=== PATIENT | male | born 1990 | race Caucasian/White ===

== ENCOUNTER 2019-04-24 08:52 | Emergency (ER) | payer OTHER, SELFPAY ==
[2019-04-24 08:52] VITALS: O2SAT 100
[2019-04-24 09:02] VITALS: BP 124/84; PULSE 120; RESP 20; TEMP 36; O2SAT 100
--- NOTE | 2019-04-24 09:06 | ECG_ITS ---
Measurements Intervals [place] Rate: 117 P: VA: 0 QRS: 28 QRSD: 96 T: 5 QT: 323 QTc: 451 Interpretive Statements ATRIAL FIBRILLATION WITH RAPID VENTRICULAR RESPONSE BORDERLINE T WAVE ABNORMALITY- INFERIOR LEADS ABNORMAL ECG Electronically Signed On 04-24-2019 17:27:00 ACCOUNTS RECEIVABLE ANALYST by Rick Costa D.O.
--- NOTE | 2019-04-24 09:08 | ED.CHESTPAIN ---
HPI - Chest Pain General Chief Complaint: Chest Pain Stated Complaint: Chest Pain Time Seen by Provider: 04/24/19 08:55 History of Present Illness HPI narrative: Victor Hugo Rolle is a 28 year old male c/o chest pain, sob - pale on arrival. Started 2 hours ago Related Data Home Medications Medication Instructions Recorded Confirmed No Home Medications 04/24/19 04/24/19 Allergies Allergy/AdvReac Type Severity Reaction Status Date / Time NKDA Allergy Mild Unknown Uncoded 04/24/19 09:03 Review of Systems Review of Systems: Narrative: CONSTITUTIONAL: Denies fever, chills, sweats. EYES: Denies visual changes, redness, discharge. ENT: Denies rhinorrhea, congestion, sore throat, otalgia. CARDIOVASCULAR:haschest pain, palpitations, some sob, no edema. RESPIRATORY: Denies dyspnea, wheezing, cough GASTROINTESTINAL: Denies abdominal pain, nausea, vomiting, diarrhea. GENITOURINARY: Denies dysuria, hematuria, abnormal discharge SKIN: Denies rash or itching. NEUROLOGIC: Denies numbness, or focal weakness. PSYCHIATRIC: Denies anxiety or depression. [facility] Family History Family History Other Diabetes mellitus Social History Social History Smoking status: Never smoker Occupation/Education: occupation Gender identity (if verbalized by the patient): Male Comments At time of signature, I agree with nursing past medical, surgical, social and family history. There is no relevant family history pertinent to the presenting complaint. Exam Narrative: Exam Narrative: GENERAL: This is a well-nourished, well-developed patient, in moderate distress. HEAD: normocephalic, atraumatic. EYESSclera clear/white. Vision is grossly intact. EARS: External ears normal, Hearing grossly intact. NOSE: External nose normal with no obvious nasal discharge, nares without redness, no rhinorrhea. THROAT: Mucous membranes moist, . NECK: Neck supple, non-tender without lymphadenopathy CARDIOVASCULAR: Rapid rate, irregular, normal rhythm without murmurs, gallops, or rubs. RESPIRATORY: Clear to auscultation. Breath sounds equal bilaterally. Some shortness of breath; no wheezes, rales, or rhonchi. GASTROINTESTINAL: Abdomen soft, non-tender, nondistended. Bowel sounds are active. SKIN: warm, intact with no suspicious lesions or rash, good texture and turgor. NEURO: awake, alert, and oriented to person, place and time. There were no obvious focal neurologic abnormalities. Steady gait EXTREMITIES: Normal range of motion. No edema. . BACK: Nontender without deformity or crepitance. Course Course Emergency Course: EKG shows abnormal irregular rhythm-interpreted as A. fib with RVR-rate fluctuating between 50s to 140s, Discussed results with mother and patient and patient will go to [facility] for further evaluation needs cardiac eval Vital Signs Vital signs: Vital Signs Temperature 96.8 F L 04/24/19 09:02 Pulse Rate 120 H 04/24/19 09:02 Respiratory Rate 04/24/19 09:02 Blood Pressure 124/84 04/24/19 09:02 Pulse Oximetry 100 04/24/19 09:02 Temperature 96.8 F L 04/24/19 09:02 Pulse Rate 120 H 04/24/19 09:02 Respiratory Rate 04/24/19 09:02 Blood Pressure 124/84 04/24/19 09:02 Pulse Oximetry 100 04/24/19 09:02 MDM - Chest Pain Differential Diagnosis Differential diagnosis: Likely stable angina, atypical chest pain and chest pain Discharge Plan Discharge Clinical Impression: Chest pain Qualifiers: Chest pain type: other chest pain Qualified Code(s): R07.89 - Other chest pain Patient Disposition: Acute Care Hospital Condition: Stable Instructions: Chest Pain (ED) Prescriptions: No Action No Home Medications RF: 0 Follow-up/Referrals: Melanie,LMA Calle [Primary Care Provider] - Time of Disposition: 09:16
== END 2019-04-24 09:15 | disposition short-term general hospital (02) ==
PROVIDERS: Emergency Provider Nurse Practitioner; PCP Nurse Practitioner Adult Health
DX: R07.89 Other chest pain (principal); I48.91 Unspecified atrial fibrillation
CPT/HCPCS: 93005; 99213; G0463

== ENCOUNTER 2019-04-24 09:33 | Observation (INO) | payer OTHER, SELFPAY ==
[2019-04-24] VITALS (12 sets, daily range): BP systolic 108–127; BP diastolic 61–81; PULSE 73–130; RESP 16–22; TEMP 36.3–37; O2SAT 94–98; BMI 29.1; BMI 28.8
--- NOTE | 2019-04-24 | ECHO_ITS ---
Patient Info Name: Victor Hugo Rolle Age: 28 years : 1990 Gender: Male Ht: 72 in Wt: 200 lbs BSA: 2.16 m2 HR: 109 bpm BP: 118 / 77 mmHg Technical Quality: Good Exam Date: 04/24/2019 1:59 PM Exam Location: [facility] Patient Status: Inpatient Admit Date: 04/24/2019 Staff Ordering Physician: Antonia Kelley MD Family Life Educator: Arielle Telles RUST Attending Provider: Lino Villalta MD Referring Physician: Warren WALKER; Exam Type: CA echo doppler color flow Summary 1. Normal LV size, mild LVH, normal LV systolic function, ejection fraction 60-65%. Indeterminate diastolic function. Normal structure of the valves. No significant MR. No aortic stenosis. Trivial TR, RVSP about 20 mmHg. Atrial fibrillation. Left Ventricle Left ventricular chamber dimension is normal. Left ventricular systolic function is normal, estimated at 60-65%. There is mildly increased left ventricular wall thickness. Left ventricular septal wall motion is normal. The left ventricular diastolic function is indeterminate. Right Ventricle Right ventricular chamber dimension is normal. Right ventricular systolic function is normal. Left Atria Left atrial chamber dimension is normal. Right Atria Right atrial chamber dimension is normal. Aortic Valve The aortic valve is trileaflet. There is no aortic valve sclerosis. There is no aortic valve stenosis. There is no aortic valve regurgitation. Pulmonic Valve The pulmonic valve is normal. There is trace pulmonic regurgitation. Mitral Valve The mitral valve has normal leaflets. There is no mitral valve stenosis. There is no mitral valve regurgitation. Tricuspid Valve The tricuspid valve leaflets are normal. There is trace tricuspid valve regurgitation. Pericardium/Pleural The pericardium appears normal. There is no pericardial effusion. Aorta The aortic root size at the sinus of Valsalva is normal. The prox ascending aorta size is normal. Left Ventricular Outflow Tract Name Value Normal LVOT 2D LVOT Diameter 2.4 cm LVOT Doppler LVOT Peak Gradient 3 mmHg LVOT Mean Gradient 2 mmHg LVOT VTI 15 cm LVOT VTI/AV VTI Ratio 0.8 LVOT Stroke Volume 68 ml LVOT CO 7.4 l/min LVOT CI 3.4 l/min/m2 Pulmonic Valve Name Value Normal PV Doppler PV Peak Gradient 3 mmHg Mitral Valve Name Value Normal MV Doppler MV Decel Campbell
--- NOTE | ~2019-04-24 | US_ITS ---
US right upper quadrant INDICATION: Abnormal liver function tests PROCEDURE: Realtime right upper abdominal ultrasound. COMPARISON: CT dated 11/18/2017 FINDINGS: The pancreas is obscured by bowel gas. Liver echotexture is increased consistent with fatt y infiltration. There is normal directional flow in the portal vein. There is gallbladder sludge. No definite gallstones. Common bile duct measures 3 mm. No sonographic Recio's sign. IMPRESSION: 1: Gallbladder sludge. 2: Hepatic steatosis. Reviewed, dictated and finalized at location A. [employer] SALES
--- NOTE | ~2019-04-24 | XR_ITS ---
EXAMINATION: XR chest 1V portable INDICATION: Shortness of breath TECHNIQUE: Portable AP chest at 1057 hours 05/29/2005 COMPARISON: None available FINDINGS: The lungs are free of acute opacities. There is no pleural effusion or pneumothorax. The ca rdiomediastinal silhouette is normal. The visualized bones and soft tissues are unremarkable. IMPRESSION: 1. No acute cardiopulmonary abnormality. Reviewed, dictated and finalized at location A. R PLANT OPERATORS SUPERVISOR
--- NOTE | 2019-04-24 09:43 | ED.ARRPALP ---
HPI - Arrhythmia/Palpitations General Chief Complaint: Arrhythmia/Palpitations Stated Complaint: SOB/CP SENT FROM URGENT CARE Time Seen by Provider: 04/24/19 09:42 Source: patient and RN notes reviewed Mode of arrival: other Limitations: no limitations History of Present Illness HPI narrative: Pt is a 28 y/o male who presents to the ED, from , with c/o an irregular heart beat that began this morning after waking up. Pt drank EtOH last night. He states that he drinks heavily about once a month. He notes that he had a similar episode 6 months ago and he wore a Holter monitor. Pt's results were negative. Pt also reports palpitations and intermittent SOB, but denies chest pain, nausea, vomiting, weakness, and calf pain. MD complaint: irregular heart beat Onset (ago): hour(s) Duration: constant Context: awoke with symptoms Associated symptoms: shortness of breath (intermittent) and other (palpitations) Related Data Home Medications Medication Instructions Recorded Confirmed No Home Medications 04/24/19 04/24/19 Allergies Allergy/AdvReac Type Severity Reaction Status Date / Time NKDA Allergy Mild Unknown Uncoded 04/24/19 12:48 Review of Systems Review of Systems: All systems reviewed & are unremarkable except as noted in HPI and below Cardiovascular: Cardiovascular: Denies chest pain, Reports irregular heart rhythm and Reports other (palpitations) Respiratory: Respiratory: Reports dyspnea (intermittent) Gastrointestinal: Gastrointestinal: Denies nausea and Denies vomiting Musculoskeletal: Musculoskeletal: Denies other (calf pain) Neurologic: Denies weakness PMFSH Past Medical History Medical History Hernia Influenza A Surgical History Surgical History H/O hernia repair S/P genital surgery penile surgery Family History Family History (Updated 04/24/19 @ 14:14 by Lino Villalta MD) Grandparent Diabetes mellitus Grandparent Carcinoma of colon Father No problems noted. Mother No problems noted. Social History Social History (Updated 04/24/19 @ 14:19 by Lino Villalta MD) Smoking status: Never smoker Alcohol intake: never Alcohol use details: Pt states that he drinks heavily once a month. 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 HEAD: Normocephalic, atraumatic NOSE: Nares clear, no rhinorrhea or epistaxis THROAT:Mucous membranes moist, Oropharynx normal without erythema, exudate, peritonsillar swelling or fluctuance NECK: Supple, without lymphadenopathy or mass RESPIRATORY: No respiratory distress, Airway patent, Respirations non-labored, Clear to auscultation without rales, rhonchi or wheeze HEART: irregular irRegular rhythm and tachycardic rate. No murmur heard. Normal peripheral pulses. ABDOMEN: Soft, nontender, nondistended, normal active bowel sounds. No masses. No rebound or guarding, No organomegaly. EXTREMITIES: No edema, normal strength with full range of motion. SKIN: Warm, dry, pale NEURO: Alert and oriented x3. CN 2-12 grossly intact. No focal deficits. PSYCH: Normal mood and affect. Course Course Emergency Course: I have discussed with patient that he has afib with RVR and he will need to be admitted. The likely cause is alcohol use. Consultations Consultation #1: Discussed case with Dr. Pedro (Cardiology). Will consult. Pt needs to be admitted to the hospitalist. Date: 04/24/19 Time: 11:24
--- NOTE | 2019-04-24 09:50 | ECG_ITS ---
Measurements Intervals [place] Rate: 114 P: AK: 0 QRS: 27 QRSD: 90 T: 6 QT: 307 QTc: 423 Interpretive Statements ATRIAL FIBRILLATION WITH RAPID VENTRICULAR RESPONSE VENTRICULAR PREMATURE COMPLEX BORDERLINE T WAVE ABNORMALITY- INFERIOR LEADS BASELINE ARTIFACT- I, II, III ABNORMAL ECG Electronically Signed On 04-24-2019 17:27:35 PULL OUT OPERATOR by Rick Costa D.O.
[2019-04-24 10:09] LABS: Basophils Percent Auto 0.7 % (0.2-1.2); Eosinophils Percent Auto 0.3 % (0-4.4); Hematocrit 44.9 % (42.0-52.0); Hemoglobin 15.9 g/dL (14.0-18.0); Immature Granulocyte Absolute 0.01 K/mm3 (0.00-0.031); Immature Granulocyte Percent A 0.2 % (0-0.5); Lymphocytes Absolute Auto 1.34 K/mm3 (0.9-3.2); Lymphocytes Percent Auto 22.2 % (18.3-44.2); Mean Corpuscular HGB Conc 35.4 g/dl (32-36); Mean Corpuscular Hemoglobin 31.5 pg (26-34); Mean Corpuscular Volume 89.1 fl (80-100); Mean Platelet Volume 9.3 fl (7.4-10.4); Monocytes Absolute Auto 0.2 K/mm3 (0.1-0.6); Monocytes Percent Auto 3.3 % (2.6-8.5); Neutrophils Absolute Auto 4.4 K/mm3 (1.3-6.7); Neutrophils Percent Auto 73.3 % (45.5-73.1); Platelet Count Result 264 k/mm3 (150-375); Red Blood Count 5.04 M/mm3 (4.6-6.20); Red Cell Distribution Width 11.8 % (11.5-14.5)
[2019-04-24 10:19] LABS: INR 1.1; Prothrombin Time 14.1 Seconds (11.1-14.7)
[2019-04-24 10:20] LABS: Partial Thromboplastin Time 28.7 SECONDS (22.3-36.8)
[2019-04-24 10:23] LABS: Alanine Aminotransferase 96 U/L (4-50); Albumin Level 5.1 g/dL (3.5-5.1); Alkaline Phosphatase 99 U/L (38-126); Aspartate Amino Transferase 66 U/L (17-59); Bilirubin,Total 0.8 mg/dL (0.2-1.3); Blood Urea Nitrogen 9 mg/dL (9-20); Calcium 9.6 mg/dL (8.4-10.2); Carbon Dioxide 23 mmol/L (22-30); Chloride 101 mmol/L (98-107); Estimated CRCL calculation 173 ml/min; Estimated Glomerular Filt Rate > 60; Glucose 126 mg/dL (75-110); Magnesium 1.8 mg/dL (1.6-2.3); Potassium 3.8 mmol/L (3.4-5.0); Sodium 144 mmol/L (137-145)
[2019-04-24 10:27] LABS: D Dimer 0.27 ug/mL (<0.48)
[2019-04-24 10:30] LABS: Amphetamine Screen Urine Negative (Negative); Barbiturate Screen Urine Negative (Negative); Benzodiazepines Screen Urine Negative (Negative); Cannabinoid Screen Urine Negative (Negative); Cocaine Screen Urine Negative (Negative); Methadone Screen Urine Negative (Negative); Opiate Screen Urine Negative (Negative); Phencyclidine Screen Urine Negative (Negative)
[2019-04-24 10:34] LABS: Troponin I < 0.012 ng/mL (0.000-0.034)
[2019-04-24] MEDS: ENOXAPARIN 100 MG/ML SYRINGE 90 MG SUB-Q (10:45)
[2019-04-24 11:07] LABS: Thyroid Stimulating Hormone Reflex 0.789 uIU/mL (0.465-4.68)
[2019-04-24] MEDS: ONDANSETRON INJ 4 MG/2 ML VIAL IV PUSH (11:14)
--- NOTE | 2019-04-24 14:08 | PM.IMHP ---
H&P: HPI History of Present Illness Chief complaint: new onset afib rvr Narrative: Victor Hugo Rolle is a 28 year old male was in his usual state of health until soon after awakening this morning. He developed palpitations in his chest. No chest pain. Associated lightheadedness dizziness shortness of breath. No syncope or presyncope. He presented the emergency department of [facility] in atrial fibrillation with a rapid ventricular response. He tolerated IV diltiazem with slowing of his heart rate. He still feels some palpitation but not as bad. He did binge drink about 6-8 drinks including beers and shots on April 23. He has been having palpitations intermittently for about 6 months. The palpitations do not correlate with his binge drinking which he does about once per month. Last episode of binge drinking prior to April 23 was about a month ago. Over the last 6 months he has noted dyspnea on exertion mainly with climbing steps. This occurs even when he is not having palpitations. He has no edema. No orthopnea or PND. Denied fevers chills night sweats rashes itching cough wheezing chest pain abdominal pain bowel change bladder change abnormal bleeding joint pain or current headache. He does have a history of migraines intermittently. Review of Systems Review of Systems: All systems reviewed & are unremarkable except as noted in HPI and below PMFSH Past Medical History Medical History Hernia Influenza A Surgical History Surgical History H/O hernia repair S/P genital surgery penile surgery Family History Family History (Updated 04/24/19 @ 14:14 by Lino Villalta MD) Grandparent Diabetes mellitus Grandparent Carcinoma of colon Father No problems noted. Mother No problems noted. Social History Social History (Updated 04/24/19 @ 14:19 by Lino Villalta MD) Smoking status: Never smoker Alcohol intake: never Alcohol use details: Pt states that he drinks heavily once a month. 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[employer] Gender identity (if verbalized by the patient): Male Spiritual care concerns: Yes (Tenriism) Agree to blood products: Yes Meds Home Medications and Allergies Home Medications Medication Instructions Recorded Confirmed Type No Home Medications 04/24/19 04/24/19 History Allergies Allergy/AdvReac Type Severity Reaction Status Date / Time NKDA Allergy Mild Unknown Uncoded 04/24/19 12:48 Vital Signs Vital Signs - 24 hr 04/24/19 09:59 04/24/19 12:40 04/24/19 13:02 Temperature 97.6 F 97.4 F L Pulse Rate 130 H 97 78 Respiratory Rate 16 21 H 18 Blood Pressure 108/81 118/77 Pulse Oximetry 96 98 98 Exam Narrative: Exam Narrative: HEENT: EOMI, PERRL, pharyngeal mucosa pink and intact NECK: No JVD, adenopathy, or thyromegaly CHEST: Clear to auscultation. Normal effort. HEART: NL S1/S2, irregular, no murmur ABDOMEN: BS+, soft, nontender, no mass, no bruits EXTREMITIES: No cyanosis, edema, or clubbing NEUROLOGIC: CN intact and symmetric to inspection. MUSCULOSKELETAL: Tone and strength symmetric. PSYCH: Alert. Oriented to person, place, and time. H&P: Results Labs Labs: Short CBC 04/24/19 Range/Units 09:58 WBC 6.0 (4.5-10.0) K/mm3 Hgb 15.9 (14.0-18.0) g/dL Hct 44.9 (42.0-52.0) % Plt Count 264 (150-375) k/mm3 [facility] 04/24/19 09:57 Sodium 144 Potassium 3.8 Chloride 101 Carbon Dioxide 23 BUN 9 Creatinine 0.60 L Glucose 126 H Calcium 9.6 Cardiac Enzymes 04/24/19 Range/Units 09:57 Troponin I < 0.012 (0.000-0.034) ng/mL Liver Function 04/04
[2019-04-24 16:22] LABS: Iron 89 ug/dL (49-181)
[2019-04-24 16:30] LABS: Percent Iron Saturation 29 % (20-50)
[2019-04-24 16:32] LABS: Hepatitis B Surface Antigen Negative (Negative)
[2019-04-24 16:37] LABS: HAV RESULT Negative (Negative); Hepatitis B Core IgM Result Negative (Negative)
[2019-04-24] MEDS: ACETAMINOPHEN 500 MG TABLET 1000 MG PO (16:44)
[2019-04-24] MEDS: THIAMINE HCL 100 MG TABLET PO (16:44)
[2019-04-24 16:51] LABS: Hepatitis C Virus Antibody Negative (Negative)
--- NOTE | 2019-04-24 19:42 | PC.NURSE ---
This patient, Victor Hugo Rolle, was admitted to IMU Room 200-01. Patient/family oriented to hospital policies and general routines including ID bracelet, bed and alarms, visiting hours, pain management, procedures, bathroom and other care routines, personal items, smoking policy, room service/diet, and visiting hours. Valuables list has been completed. Information on how to activate the Rapid Response Team has been discussed. Patient/Family are encouraged to report perceived risks to care and to ask questions if they do not understand what they are told or what they should do.
[2019-04-24] MEDS: APIXABAN 5 MG TABLET PO (20:13)
[2019-04-25] VITALS (8 sets, daily range): BP systolic 104–124; BP diastolic 61–69; PULSE 62–74; RESP 18–20; TEMP 36.6–36.9; O2SAT 95–100
[2019-04-25 05:04] LABS: Alanine Aminotransferase 79 U/L (4-50); Albumin Level 4.1 g/dL (3.5-5.1); Alkaline Phosphatase 73 U/L (38-126); Aspartate Amino Transferase 51 U/L (17-59); Bilirubin,Total 0.9 mg/dL (0.2-1.3); Blood Urea Nitrogen 16 mg/dL (9-20); Calcium 8.5 mg/dL (8.4-10.2); Carbon Dioxide 24 mmol/L (22-30); Chloride 99 mmol/L (98-107); Estimated CRCL calculation 150 ml/min; Estimated Glomerular Filt Rate > 60; Glucose 102 mg/dL (75-110); Potassium 3.4 mmol/L (3.4-5.0); Sodium 138 mmol/L (137-145)
--- NOTE | 2019-04-25 08:50 | PM.CNCAR ---
Assessment and Plan Assessment and plan (1) Atrial fibrillation with RVR: Code(s): I48.91 - Unspecified atrial fibrillation Status: Acute Assessment and Plan: 28-year-old male with no known prior cardiac history admitted to the hospital with complaints of palpitations, off and on for approximately 6 months. Patient was found to be in atrial fibrillation with RVR. He was initiated on IV diltiazem, and reverted back to sinus rhythm this morning. His echocardiogram is grossly unremarkable. Patient's other lab work showed elevated liver enzymes with AST at 66, ALT at 96. TSH is normal. Ultrasound of the liver and gallbladder showed gallbladder sludge, hepatic steatosis. -patient has atrial fibrillation in the setting of binge alcohol drinking. He was advised to abstain from alcohol. In addition, he has hepatic steatosis. Patient verbalized understanding and will abstain from alcohol. -patient will be initiated on diltiazem CD 120 mg p.o. daily for now, hopefully short-term. His [id number] score score falls in low risk category. Patient will be initiated on aspirin regimen. -cardiology follow-up information was provided to the patient. (2) Alcohol abuse: Code(s): F10.10 - Alcohol abuse, uncomplicated Status: Acute Assessment and Plan: Patient was counseled to abstain from alcohol for now due to his atrial fibrillation and also hepatic steatosis. (3) Alcoholic fatty liver: Code(s): K70.0 - Alcoholic fatty liver Status: Acute Assessment and Plan: Outpatient follow-up, management as per primary care physician History of Present Illness History of Present Illness Consult date/time: 04/25/19 08:50 Date of consult 04/25/2019 Reason for consult: Atrial fibrillation Requesting physician: Dr. Villalta and ER physician Chief complaint: Palpitations HPI: 28-year-old male with no known prior cardiac history was admitted to [facility] on 03/24/2019 with complaints of palpitations that started on the morning of the admission. Patient gives history of off and on palpitations for approximately 6 months, happen 1-2 times per week, each time lasting for few minutes. He states that he also has dyspnea on moderate severe exertion, and occasional chest pressure associated with palpitations. He denies any dizziness or syncope. There is no family history of sudden cardiac or any arrhythmias. Patient states that he does binge drinking, and had alcohol the night before his current symptoms of palpitations and admission to the hospital. Patient was found to be in atrial fibrillation with RVR in the emergency room. His EKG which I personally evaluated showed atrial fibrillation with RVR, ventricular rate 117 beats per minute. Patient was initiated on IV diltiazem, and he reverted to sinus rhythm this morning. Repeat EKG which I personally evaluated shows sinus rhythm without any acute ST segment abnormality. His echocardiogram which I personally evaluated showed normal LV systolic function, no major structural heart disease. Chest x-ray is unremarkable. D-dimer is negative. Patient's TSH is normal at 0.789. Patient's liver ultrasound showed Gallbladder sludge, Hepatic steatosis. Hepatitis B/C screen is negative. Today morning, patient reports improvement in his palpitations. Reason For Visit: new onset afib rvr Review of Systems Constitutional: Constitutional: Denies chills, Denies fatigue, Denies fever(s) and Denies headache(s) Eyes: Eyes: Reports as per HPI, Denies change in vision, Denies loss of vision and Denies eye pain ENT: Reports as per HPI, Reports Normal hearing present, Denies headache(s), Denies lip swelling, Denies epistaxis and Denies sore throat Cardiovascular: Cardiovascular: Reports as per HPI, Reports chest pain, Denies syncope, Reports irregular heart rhythm, Denies lightheadedness and Reports dyspnea Respiratory: Respiratory: Reports as per HPI, Denies cough, Denies
--- NOTE | 2019-04-25 08:59 | PM.IMPN ---
Progress Note: A&P Assessment and Plan (1) Atrial fibrillation with RVR: Code(s): I48.91 - Unspecified atrial fibrillation Status: Acute Assessment and Plan: HR 65 Transition to PO beta sherry EKG Cardiology evaluation Continue Eliquis (2) Alcohol abuse: Code(s): F10.10 - Alcohol abuse, uncomplicated Status: Acute Assessment and Plan: Discussed w/ pt need to abstain (3) Alcoholic fatty liver: Code(s): K70.0 - Alcoholic fatty liver Status: Acute Assessment and Plan: viral hepatitis panel negative d/w pt need to quit drinking Subjective Date/time seen: 04/25/19 08:59 Interval history: No further palpitations Review of Systems Review of Systems: All systems reviewed & are unremarkable except as noted in HPI and below Exam Const: Other: HEENT: EOMI, PERRL, pharyngeal mucosa pink and intact NECK: No JVD CHEST: Clear to auscultation. Normal effort. HEART: NL S1/S2, irregular, no murmur ABDOMEN: BS+, soft, nontender, no mass, no bruits EXTREMITIES: No cyanosis, edema, or clubbing NEUROLOGIC: CN intact and symmetric to inspection. MUSCULOSKELETAL: Tone and strength symmetric. PSYCH: Alert. Oriented to person, place, and time. Objective Data Vital Signs Vital Signs: Vital Signs - 24 hr 04/24/19 09:59 04/24/19 12:40 04/24/19 13:02 Temperature 97.6 F 97.4 F L Pulse Rate 130 H 97 78 Respiratory Rate 16 21 H 18 Blood Pressure 108/81 118/77 Pulse Oximetry 96 98 98 04/24/19 14:00 04/24/19 16:00 04/24/19 17:25 Temperature 98.6 F Pulse Rate 114 H 75 104 H Respiratory Rate 22 H 22 H Blood Pressure 127/71 Pulse Oximetry 97 97 04/24/19 18:00 04/24/19 19:51 04/24/19 19:58 Temperature 98.4 F Pulse Rate 75 73 73 Respiratory Rate 16 16 Blood Pressure 110/61 Pulse Oximetry 97 97 04/24/19 20:00 04/24/19 22:00 04/24/19 23:57 Temperature 98.4 F Pulse Rate 76 75 79 Respiratory Rate 16 Blood Pressure 118/62 Pulse Oximetry 94 04/25/19 00:00 04/25/19 02:00 04/25/19 03:32 Temperature 97.9 F Pulse Rate 74 72 63 Respiratory Rate 20 18 Blood Pressure 104/62 Pulse Oximetry 100 95 04/25/19 04:00 04/25/19 06:00 04/25/19 08:00 Temperature Pulse Rate 72 65 65 Respiratory Rate 18 18 Blood Pressure Pulse Oximetry 95 95 04/25/19 08:53 Temperature 98.0 F Pulse Rate 73 Respiratory Rate 20 Blood Pressure 111/61 Pulse Oximetry 98 Intake/Output Intake/Output: Intake & Output 04/22/19 04/23/19 04/24/19 04/25/19 23:59 23:59 23:59 23:59 Intake Total 1000 1055 Output Total 800 Balance 1000 255 Meds/Results Medications: Active Medications Generic Name Dose Route Start Last Admin Trade Name Freq PRN Reason Stop Dose Admin Acetaminophen 1,000 mg 04/24/19 15:49 04/24/19 16:44 Tylenol Tablet PO 1,000 mg Q6H PRN Administration Mild Pain (1-3) or Headache Apixaban 5 mg 04/24/19 21:00 04/24/19 20:13 Eliquis PO 5 mg Q12HR RONALDO Administration Diltiazem HCl 100 mg in 100 mls @ 5 mls/hr 04/24/19 19:35 04/25/19 08:02 Cardizem 100 Mg/D5w 100 Ml IV CONT 04/25/19 09:00 5 mg/hr .Q20H RONALDO 5 mls/hr Infusion 5 MG/HR Thiamine HCl 100 mg 04/24/19 14:25 04/24/19 16:44 Vitamin B-1 PO 100 mg QAM RONALDO Administration Radiology Results: ITS Impressions Chest X-Ray 04/24/19 11:17 IMPRESSION: 1. No acute cardiopulmonary abnormality. Upper Quadrant Ultrasound 04/25/19 08:47 IMPRESSION: 1: Gallbladder sludge. 2: Hepatic steatosis. Labs Labs: Laboratory Results - last 24 hr 04/24/19 04/24/19 04/24/19 09:57 09:57 09:57 WBC RBC Hgb Hct MCV MCH MCHC RDW Plt Count MPV Immature Gran % (Auto) Neut % (Auto) Lymph % (Auto) [place] % (Auto) Eos % (Auto) Baso % (Auto) Lymph # (Auto) [place] # (Auto) Eos # (Auto) Baso # (Auto) Abs Im
--- NOTE | 2019-04-25 09:02 | ECG_ITS ---
Measurements Intervals [place] Rate: 66 P: 26 [place]: 188 QRS: 19 QRSD: 101 T: 5 QT: 401 QTc: 421 Interpretive Statements SINUS RHYTHM MINIMAL Q WAVES- INFERIOR LEADS BORDERLINE ST-T WAVE ABNORMALITY- INFERIOR LEADS BORDERLINE ECG Electronically Signed On 04-25-2019 16:00:10 ENERGY ANALYST by Rick Costa D.O.
[2019-04-25] MEDS: APIXABAN 5 MG TABLET PO (09:32)
[2019-04-25] MEDS: THIAMINE HCL 100 MG TABLET PO (09:32)
--- NOTE | 2019-04-25 10:19 | PM.DS ---
DS: Diagnosis Admitting Diagnosis Admitting Diagnosis: Unspecified atrial fibrillation Discharge Diagnosis (1) Atrial fibrillation with RVR: Code(s): I48.91 - Unspecified atrial fibrillation Status: Acute Assessment and Plan: HR 65 Transition to PO diltiazem EKG NSR Echo WNL ASA due to low stroke risk (2) Alcohol abuse: Code(s): F10.10 - Alcohol abuse, uncomplicated Status: Acute Assessment and Plan: Discussed w/ pt need to abstain (3) Alcoholic fatty liver: Code(s): K70.0 - Alcoholic fatty liver Status: Acute Assessment and Plan: viral hepatitis panel negative d/w pt need to quit drinking DS: Summary Hospital Course Reason for hospitalization: afib rvr Hospital Course: Palpitations after binge drinking. AFIB rvr. Converted while on diltiazem drip. Echo WNL. Time Spent with Patient Time attestation: Total time spent providing and/or coordinating discharge services: 38 min Exam Narrative: Exam Narrative: HEENT: EOMI, PERRL, pharyngeal mucosa pink and intact NECK: No JVD, adenopathy, or thyromegaly CHEST: Clear to auscultation. Normal effort. HEART: NL S1/S2, irregular, no murmur ABDOMEN: BS+, soft, nontender, no mass, no bruits EXTREMITIES: No cyanosis, edema, or clubbing NEUROLOGIC: CN intact and symmetric to inspection. MUSCULOSKELETAL: Tone and strength symmetric. PSYCH: Alert. Oriented to person, place, and time. DS: Data Data Completed and Pending Labs on day of discharge: Labs from last 24 hours 04/25/19 04/24/19 04/24/19 04:19 15:34 15:34 PT INR APTT D-Dimer Sodium 138 Potassium 3.4 Chloride 99 Carbon Dioxide 24 BUN 16 Creatinine 0.70 Estim Creat Clear Calc 150 Estimated GFR > 60 Glucose 102 Calcium 8.5 Magnesium Iron TIBC % Saturation Total Bilirubin 0.9 AST 51 ALT 79 H Alkaline Phosphatase 73 Troponin I Total Protein 7.0 Albumin 4.1 Ceruloplasmin Pending TSH (Reflex) Urine Opiates Screen Urine Methadone Screen Ur Barbiturates Screen Ur Phencyclidine Scrn Ur Amphetamine Screen U Benzodiazepines Scrn Urine Cocaine Screen U Cannabinoids Screen Hepatitis A IgM Ab Negative Hep Bs Antigen Negative Hep B Core IgM Ab Negative Hepatitis C Ab Screen 04/24/19 04/24/1904/24/20 15:34 15:34 10:03 PT INR APTT D-Dimer Sodium Potassium Chloride Carbon Dioxide BUN Creatinine Estim Creat Clear Calc Estimated GFR Glucose Calcium Magnesium Iron 89 TIBC 303 % Saturation 29 Total Bilirubin AST ALT Alkaline Phosphatase Troponin I Total Protein Albumin Ceruloplasmin TSH (Reflex) Urine Opiates Screen Negative Urine Methadone Screen Negative Ur Barbiturates Screen Negative Ur Phencyclidine Scrn Negative Ur Amphetamine Screen Negative U Benzodiazepines Scrn Negative Urine Cocaine Screen Negative U Cannabinoids Screen Negative Hepatitis A IgM Ab Hep Bs Antigen Hep B Core IgM Ab Hepatitis C Ab Screen Negative 04/24/19 04/24/19 04/24/19 09:57 09:57 09:57 PT 14.1 INR 1.1 APTT 28.7 D-Dimer 0.27 Sodium 144 Potassium 3.8 Chloride 101 Carbon Dioxide 23 BUN 9 Creatinine 0.60 L Estim Creat Clear Calc 173 Estimated GFR > 60 Glucose 126 H Calcium 9.6 Magnesium 1.8 Iron TIBC % Saturation Total Bilirubin 0.8 AST 66 H ALT 96 H Alkaline Phosphatase 99 Troponin I < 0.012 Total Protein 9.0 H Albumin 5.1 Ceruloplasmin TSH (Reflex) 0.789 Urine Opiates Screen Urine Methadone Screen Ur Barbiturates Screen Ur Phencyclidine Scrn Ur Amphetamine Screen U Benzodiazepines Scrn Urine Cocaine Screen U Cannabinoids Screen Hepatitis A IgM Ab Hep Bs Antigen Hep B Core IgM Ab
[2019-04-26 21:11] LABS: Ceruloplasmin 23 mg/dL (18-36)
== END 2019-04-25 12:00 | disposition home or self-care (01) ==
LOC: ANHED 11:47 → ANHIMU 11:57
PROVIDERS: Admitting Provider Internal Medicine; Emergency Provider General Practice; PCP Nurse Practitioner Adult Health; Visit Provider Internal Medicine
DX: I48.91 Unspecified atrial fibrillation (principal); F10.10 Alcohol abuse, uncomplicated; K76.0 Fatty (change of) liver, not elsewhere classified; R94.5 Abnormal results of liver function studies
CPT/HCPCS: 36415; 71045; 76705; 80053; 80307; 82390; 83540; 83550; 83735; 84443; 84484; 85025; 85380; 85610; 85730; 86705; 86709; 86803; 87340; 93005; 93306; 96365; 96366; 96372; 96375; 99285; A9270; G0378; J1650; J2405

== ENCOUNTER 2019-05-09 19:55 | Emergency (ER) | payer OTHER, SELFPAY ==
--- NOTE | ~2019-05-09 | XR_ITS ---
EXAMINATION: XR chest 2V 05/09/2019 21:59 INDICATION: Cough PROCEDURE: 2 view chest COMPARISON: 04/24/2019 FINDINGS: The lungs are clear. The cardiomediastinal silhouette is within normal limits. There are no pleural effusions. There is no pneumothorax suspected. IMPRESSION: 1: NO ACUTE CARDIOPULMONARY DISEASE. Reviewed, dictated and finalized at location A.
[2019-05-09 20:08] VITALS: BP 138/77; PULSE 104; RESP 18; TEMP 38.2; O2SAT 100
--- NOTE | 2019-05-09 21:35 | ED.URI ---
HPI - URI/Sore Throat General Chief Complaint: Upper Respiratory Infection Stated Complaint: cough Time Seen by Provider: 05/09/19 21:33 Source: patient Mode of arrival: ambulatory Limitations: no limitations History of Present Illness HPI Narrative: A 28 y/o presents to the ED with c/o cough. Pt states that the nonproductive cough started 2 days ago and has been worsening since. He has a PMHx of asthma, but notes that he has not had trouble with it since he was a child. Pt reports SOB, wheezing, otalgia, sore throat, and nasal congestion, but denies fever, rash, and ABD pain. He denies any ill contacts and any recent car or air travel. Pt took DayQuil and NyQuil with no relief. elicited complaint: cough (Nonproductive) Pertinent past history: asthma Onset (ago): day(s) (2) Consistency: progressively worsening Relieving factors: nothing Associated symptoms: nasal congestion, sore throat, shortness of breath and other (Wheezing, otalgia) Treatments prior to arrival: cold medicine (DayQuil, NyQuil) Related Data Home Medications Medication Instructions Recorded Confirmed apixaban [Eliquis] 5 mg PO DAILY 05/09/19 05/09/19 Allergies Allergy/AdvReac Type Severity Reaction Status Date / Time NKDA Allergy Mild Unknown Uncoded 05/09/19 21:46 Review of Systems Review of Systems: Narrative: CONSTITUTIONAL: Denies fever, chills, or sweats. EYES: Denies visual changes, redness, or discharge. ENT: Denies rhinorrhea. Reports congestion, sore throat, and otalgia. CARDIOVASCULAR: Denies chest pain, palpitations, or edema. RESPIRATORY: Reports nonproductive cough, wheezing, and dyspnea. GASTROINTESTINAL: Denies abdominal pain, nausea, vomiting, or diarrhea. GENITOURINARY: Denies dysuria or hematuria. SKIN: Denies rash or itching. MUSCULOSKELETAL: Denies back pain, joint pain, or myalgia. NEUROLOGIC: Denies headache, numbness, or weakness. All systems reviewed & are unremarkable except as noted in HPI and below PMFSH Past Medical History Medical History (Updated 05/09/19 @ 23:28 by Desirae Freeman MD) Alcoholic fatty liver Asthma Hernia Influenza A Surgical History Surgical History H/O hernia repair S/P genital surgery penile surgery Family History Family History Grandparent Diabetes mellitus Grandparent Carcinoma of colon Father No problems noted. Mother No problems noted. 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 HEAD: Normocephalic, atraumatic. EYES: PERRLA and EOMI. ENT: Nares clear, no rhinorrhea or epistaxis. Mucous membranes moist. Sinus congestion. Mild erythema of the oropharynx, no exudate. NECK: Supple. CHEST: Clear to auscultation. No respiratory distress. HEART: Regular rate and rhythm. No murmur heard. Normal peripheral pulses. ABDOMEN: Soft, nontender, nondistended, normal active bowel sounds. EXTREMITIES: Normal range of motion. No edema. SKIN: Warm, dry, no rash. NEURO: No focal deficits. Alert and oriented X3. Course Course Emergency Course: Patient with negative influenza and strep swabs. Patient symptoms are most consistent with viral type symptoms given cough and congestion. No evidence of pneumonia on chest x-ray. Advised patient continue antipyretics, fluids, given a work note, discharged home in stable condition. Vital Signs Vital signs: Vital Signs Temperat
[2019-05-09 21:42] VITALS: BP 131/83; PULSE 99; RESP 16; O2SAT 100
[2019-05-09] MEDS: ACETAMINOPHEN 500 MG TABLET 1000 MG PO (22:21)
[2019-05-09 22:47] VITALS: BP 124/82; PULSE 93; RESP 18; TEMP 37.7; O2SAT 96
== END 2019-05-09 23:40 | disposition home or self-care (01) ==
PROVIDERS: Emergency Provider Emergency Medicine; PCP Nurse Practitioner Adult Health
DX: J06.9 Acute upper respiratory infection, unspecified (principal); J45.909 Unspecified asthma, uncomplicated
CPT/HCPCS: 71046; 87081; 87147; 87804; 87880; 99283; A9270; J1100

== ENCOUNTER 2019-11-17 10:28 | Outpatient (CLI) | payer OTHER, SELFPAY ==
--- NOTE | ~2019-11-17 | NM_ITS ---
EXAMINATION: NM hepatobiliary wo pharm DATE: 11/17/2019 14:56 INDICATION: Right upper quadrant abdominal pain COMPARISON: CT dated 11/18/2017 TECHNIQUE: 4.52 mCi Tc-99m mebrofenin (Choletec) was administered intravenously. Scintigraphic image s of the abdomen were obtained for one hour. Additional 4 hour delayed anterior and lateral scintigra ms of the abdomen were obtained. FINDINGS: There is normal clearance of radiotracer from the blood pool. There is homogeneous tracer u ptake by the liver. Activity progresses to the common bile duct by 10 minutes with activity in the d uodenum extending to the region of the ligament of Treitz by 15 minutes. The gallbladder is not visua lized throughout the first 60 minutes of imaging. There is a region of mild activity in the right upp er quadrant along the anterior/cephalad margin of the hepatic flexure of the colon with similar size and position as the gallbladder as seen on CT dated 11/18/2017. IMPRESSION: 1. No evident activity within the gallbladder at 60 minutes but with activity likely within the gall bladder seen on 4 hour delayed images. Specific identification of the gallbladder which would preclud e acute cholecystitis is however limited by the significant colonic activity in the right upper quadr ant. If there is continued clinical concern for acute cholecystitis would consider further evaluation with either right upper quadrant ultrasound or CT. Reviewed, dictated and finalized at location A. IMPRESSION: 1. No evident activity within the gallbladder at 60 minutes but with activity likely within the gallbladder seen on 4 hour delayed images. Specific identific ation of the gallbladder which would preclude acute cholecystitis is however li mited by the significant colonic activity in the right upper quadrant. If there is continued clinical concern for acute cholecystitis would consider further e valuation with either right upper quadrant ultrasound or CT.
== END 2019-11-17 10:29 | disposition home or self-care (01) ==
LOC: ANHIMG 10:34
PROVIDERS: PCP Nurse Practitioner Adult Health; Visit Provider Nurse Practitioner Adult Health
DX: R10.11 Right upper quadrant pain (principal)
CPT/HCPCS: 78226; A9537

== ENCOUNTER 2019-11-22 22:39 | Emergency (ER) | payer OTHER, SELFPAY ==
[2019-11-22 22:44] VITALS: BP 122/77; PULSE 95; RESP 16; TEMP 36.5; O2SAT 98
[2019-11-22 23:08] LABS: Basophils Percent Auto 0.3 % (0.2-1.2); Eosinophils Absolute Auto 0.3 K/mm3 (0-0.3); Eosinophils Percent Auto 3.8 % (0-4.4); Hematocrit 50.1 % (42.0-52.0); Hemoglobin 17.5 g/dL (14.0-18.0); Immature Granulocyte Absolute 0.03 K/mm3 (0.00-0.031); Immature Granulocyte Percent A 0.4 % (0-0.5); Lymphocytes Absolute Auto 1.44 K/mm3 (0.9-3.2); Lymphocytes Percent Auto 18.1 % (18.3-44.2); Mean Corpuscular HGB Conc 34.9 g/dl (32-36); Mean Corpuscular Hemoglobin 31.6 pg (26-34); Mean Corpuscular Volume 90.6 fl (80-100); Mean Platelet Volume 9.3 fl (7.4-10.4); Monocytes Absolute Auto 0.5 K/mm3 (0.1-0.6); Neutrophils Absolute Auto 5.7 K/mm3 (1.3-6.7); Neutrophils Percent Auto 71.4 % (45.5-73.1); Platelet Count Result 281 k/mm3 (150-375); Red Blood Count 5.53 M/mm3 (4.6-6.20); Red Cell Distribution Width 11.9 % (11.5-14.5)
[2019-11-22 23:22] LABS: Alanine Aminotransferase 110 U/L (4-50); Albumin Level 4.8 g/dL (3.5-5.1); Alkaline Phosphatase 92 U/L (38-126); Anion Gap 11 mmol/L (8-16); Aspartate Amino Transferase 58 U/L (17-59); Blood Urea Nitrogen 18 mg/dL (9-20); Calcium 9.9 mg/dL (8.4-10.2); Carbon Dioxide 22 mmol/L (22-30); Chloride 106 mmol/L (98-107); Estimated CRCL calculation 131 ml/min; Estimated Glomerular Filt Rate > 60; Glucose 147 mg/dL (75-110); Lipase 42 U/L (23-300); Potassium 4.1 mmol/L (3.4-5.0); Sodium 139 mmol/L (137-145)
[2019-11-23 00:04] LABS: Add Urine Microscopic? YES; Amorphous Sediment Urine Few; Appearance Urine Turbid (Clear); Bacteria Urine Trace /hpf; Bilirubin Urine Negative (Negative); Blood Urine Negative (Negative); Color Urine Yellow (Yellow); Glucose Urine UA Negative (Negative); Ketones Urine Negative (Negative); Leukocyte Esterase Ur Negative LEU/UL (Negative); Mucus Urine Moderate /lpf; Nitrate Urine Negative (Negative); Protein Urine 2+ mg/dL (Negative); Urobilinogen Urine Negative mg/dL (<2.0)
[2019-11-23 00:05] LABS: Specific Grav Ur 1.038 (1.001-1.035)
[2019-11-23 01:23] VITALS: BP 130/95; PULSE 95; RESP 17; O2SAT 97
--- NOTE | 2019-11-23 02:05 | ED.ABDPAIN ---
HPI - Abdominal Pain General Chief Complaint: Abdominal Pain Stated Complaint: abd pain Time Seen by Provider: 11/23/19 02:04 History of Present Illness HPI narrative: Pt c/o abd pain, diffuse, dull ache, non radiaing, 08/10, accompanied by n/v/d. Denies any fever. Denies cp or sob. Related Data Home Medications Medication Instructions Recorded Confirmed No Home Medications 11/23/19 11/23/19 Allergies Allergy/AdvReac Type Severity Reaction Status Date / Time No Known Allergies Allergy Verified 11/23/19 01:19 Review of Systems Review of Systems: All systems reviewed & are unremarkable except as noted in HPI and below Constitutional: Constitutional: Denies body ache(s), Denies chills, Denies excessive sweating, Denies fatigue, Denies fever(s), Denies headache(s), Denies lethargy, Denies malaise, Denies weakness and Denies weight loss Eyes: Eyes: Denies blurry vision, Denies change in vision and Denies loss of vision ENT: Denies dizziness, Denies ear discharge, Denies headache(s), Denies lip swelling, Denies epistaxis, Denies nasal congestion, Denies neck pain, Denies throat swelling and Denies tongue swelling Cardiovascular: Cardiovascular: Denies chest pain, Denies chest pain at rest, Denies chest pain with activity, Denies diaphoresis, Denies rapid heart rate, Denies edema, Denies irregular heart rhythm, Denies lightheadedness, Denies palpitations, Denies dyspnea and Denies dyspnea on exertion Respiratory: Respiratory: Denies chest congestion, Denies cough, Denies hemoptysis, Denies dyspnea and Denies dyspnea on exertion Gastrointestinal: Gastrointestinal: Denies melena, Denies hematochezia and Denies diarrhea Musculoskeletal: Musculoskeletal: Denies abnormal gait, Denies deformity, Denies joint swelling, Denies limited range of motion, Denies neck pain and Denies numbness Neurologic: Denies Abnormal speech present, Denies abnormal gait, Denies confusion, Denies dizziness, Denies headache(s), Denies focal weakness, Denies loss of vision, Denies numbness, Denies Other visual disturbances, Denies Sensory deficit (Neuro) and Denies weakness Psychiatric: Psychiatric: Denies confusion, Denies depression, Denies auditory hallucinations, Denies homicidal ideation and Denies suicidal ideation Endocrine: Endocrine: Denies cold intolerance, Denies excessive sweating, Denies fatigue, Denies heat intolerance and Denies palpitations Hematologic/Lymphatic: Hematologic/Lymphatic: Denies easy bleeding and Denies easy bruising Allergic/Immunologic: Allergic/Immunologic: Denies lip swelling, Denies throat swelling and Denies tongue swelling PMFSH Past Medical History Medical History (Updated 11/23/19 @ 03:49 by Humberto Sosa MD) Alcoholic fatty liver Asthma Hernia Influenza A Social History Social History (Updated 05/09/19 @ 21:56 by Beryl Garcia) Smoking status: Never smoker Alcohol intake: current Substance use: never Additional living arrangements comments: Resides with his ahne and 4 children in his own home 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[employer] Gender identity (if verbalized by the patient): Male Spiritual care concerns: Yes (Restoration) Agree to blood products: Yes Exam Const: General: cooperative, healthy appearing, comfortable, no acute distress, well developed, alert and awake; No confusion Orientation/consciousness: oriented to person, oriented to place, oriented to time, patient oriented x3 and No confusion Limitations: no limitations HENMT: Head: normal to inspection, normocephalic and atraumatic Ears: hearing grossly normal bilaterally, TM normal on the right and TM normal on the left General nose exam: Normal external nose present, Normal nares present and No nasal discharge present Face and sinus: normal facial exam Mouth: Yes Normal oral and palatal mucosa present, Yes lip normal, Yes tongue normal and Yes oropharynx normal Throat: posterior oropha
[2019-11-23] MEDS: SODIUM CHLORIDE 0.9% IV 1,000 ML 999 ML IV CONT (02:20)
[2019-11-23] MEDS: ONDANSETRON INJ 4 MG/2 ML VIAL IV PUSH (02:21)
[2019-11-23 04:13] VITALS: BP 122/91; PULSE 75; RESP 17; O2SAT 98
== END 2019-11-23 04:14 | disposition home or self-care (01) ==
PROVIDERS: Emergency Provider Emergency Medicine; PCP Nurse Practitioner Adult Health
DX: K52.9 Noninfective gastroenteritis and colitis, unspecified (principal); J45.909 Unspecified asthma, uncomplicated
CPT/HCPCS: 36415; 80053; 81001; 83690; 85025; 96361; 96374; 99284; J2405; J7030

== ENCOUNTER 2020-07-27 17:22 | Emergency (ER) | payer OTHER, SELFPAY ==
[2020-07-27 17:29] VITALS: BP 117/76; PULSE 80; RESP 18; TEMP 36.4; O2SAT 97
--- NOTE | 2020-07-27 17:29 | ECG_ITS ---
Measurements Intervals [place] Rate: 69 P: 49 SC: 182 QRS: 40 QRSD: 105 T: 23 QT: 399 QTc: 430 Interpretive Statements SINUS RHYTHM WITH SINUS ARRHYTHMIA MINIMAL Q WAVES- INFERIOR LEADS BASELINE ARTIFACT- V1-V2 BORDERLINE ECG Electronically Signed On 07-27-2020 17:42:51 CDT by Rick Costa D.O.
--- NOTE | 2020-07-27 17:38 | ED.ARRPALP ---
HPI - Arrhythmia/Palpitations General Chief Complaint: Arrhythmia/Palpitations Stated Complaint: palpitations Time Seen by Provider: 07/27/20 17:46 Source: patient Mode of arrival: ambulatory Limitations: no limitations History of Present Illness HPI narrative: Victor Hugo Rolle is a 29 yo male with a PMH alcohol abuse, migraines, alcoholic steatosis, afib with RVR, [facility] heart palpitations. Palpitations started on Friday when patient changed his allergy medication from Zyrtec to Monica. He began to experience heart palpitations and stopped taking Monica on Friday night but is continued to have heart palpitations. He incidentally reported that he had a migraine headache and took Excedrin Migraine. patient is quit drinking, Patient called PCP who told him to come to urgent care to be evaluated. His O2 satsare 97%. to do an EKG and make decisions about care from there he was seen here last year and hospitalized at [facility] after being transferred from urgent care to the ED with irregular heartbeat. Radiology saw the patient and he returned to normal sinus rhythm after IV diltiazem. He was admitted for basic work-up with an echocardiogram and was released on ASA for anticoagulation and long-acting diltiazem 120 mg. His PCP told him he could stop taking the medication once the meds were announces his echocardiogram was negative for blockage are other circulatory issues. Supposed to follow-up with Dr. Pedro and has failed to do so Patient was admitted for alcohol abuse last year and was told to quit drinking and patient states he has not had anything to drink in the last year although it has been quite hard not to do so. He does not smoke cigarettes. He is deconditioned though as he does not exercise; denies any alcohol relapse, chest pain, sob Related Data Allergies Allergy/AdvReac Type Severity Reaction Status Date / Time No Known Allergies Allergy Verified 07/27/20 17:43 Review of Systems Review of Systems: Narrative: CONSTITUTIONAL: Denies fever, chills, sweats. EYES: Denies visual changes, redness, discharge. ENT: Denies rhinorrhea, congestion, sore throat, otalgia. CARDIOVASCULAR: Denies chest pain, has palpitations, edema. RESPIRATORY: Denies dyspnea, wheezing, cough GASTROINTESTINAL: Denies abdominal pain, nausea, vomiting, diarrhea. GENITOURINARY: Denies dysuria, hematuria, abnormal discharge SKIN: Denies rash or itching. NEUROLOGIC: Denies numbness, or focal weakness. PSYCHIATRIC: Denies anxiety or depression. [facility] Past Medical History Medical History (Updated 07/27/20 @ 18:28 by Eugenia Childs CNP) Alcoholic fatty liver Asthma Hernia Influenza A Migraine Surgical History Surgical History H/O hernia repair S/P genital surgery penile surgery Family History Family History Grandparent Diabetes mellitus Grandparent Carcinoma of colon Father No problems noted. Mother No problems noted. 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 There is no relevant family history pertinent to the presenting complaint. Exam Narrative: Exam Narrative: GENERAL: This is a well-nourished, well-developed patient
== END 2020-07-27 18:34 | disposition home or self-care (01) ==
PROVIDERS: Emergency Provider Nurse Practitioner; PCP Nurse Practitioner Adult Health
DX: R00.2 Palpitations (principal); K70.0 Alcoholic fatty liver; J45.909 Unspecified asthma, uncomplicated; I48.91 Unspecified atrial fibrillation
CPT/HCPCS: 93005; 99213; G0463

== ENCOUNTER 2020-12-11 08:03 | Emergency (ER) | payer OTHER, SELFPAY ==
[2020-12-11 08:12] VITALS: BP 124/81; PULSE 113; RESP 18; TEMP 38.6; O2SAT 97
--- NOTE | 2020-12-11 08:28 | ED.URI ---
HPI - URI/Sore Throat General Chief Complaint: Upper Respiratory Infection Stated Complaint: Cough,Congestion Time Seen by Provider: 12/11/20 08:20 Source: patient Mode of arrival: ambulatory Limitations: no limitations History of Present Illness HPI Narrative: Victor Hugo Rolle is a 30 yo male with no PMH [facility] sore throat and dry cough, patient currently has 101.5 fever. Symptoms started on Friday and worsened over the weekend Related Data Allergies Allergy/AdvReac Type Severity Reaction Status Date / Time codeine AdvReac Palpitation Verified 12/11/20 08:23 s Review of Systems Review of Systems: CONSTITUTIONAL: Has fever, chills, sweats. EYES: Denies visual changes, redness, discharge. ENT: Denies rhinorrhea, congestion, has sore throat, otalgia. CARDIOVASCULAR: Denies chest pain, palpitations, edema. RESPIRATORY: Denies dyspnea, wheezing, has cough GASTROINTESTINAL: Denies abdominal pain, nausea, vomiting, diarrhea. GENITOURINARY: Denies dysuria, hematuria, abnormal discharge SKIN: Denies rash or itching. NEUROLOGIC: Denies numbness, or focal weakness. PSYCHIATRIC: Denies anxiety or depression. [facility] Past Medical History Medical History Alcoholic fatty liver Asthma Hernia Influenza A Migraine Surgical History Surgical History H/O hernia repair S/P genital surgery penile surgery Family History Family History Grandparent Diabetes mellitus Grandparent Carcinoma of colon Father No problems noted. Mother No problems noted. Social History Social History Smoking status: Never smoker Alcohol intake: current Alcohol use details: Pt states that he drinks heavily once a month. 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 There is no relevant family history pertinent to the presenting complaint. Exam Narrative: GENERAL: This is a well-nourished, well-developed patient, in moderate distress. HEAD: normocephalic, atraumatic. EYES: Sclera clear/white. Vision is grossly intact. EARS: External ears normal, auditory canals clear and without drainage, TMs normal without perforation. Hearing grossly intact. NOSE: External nose normal without nasal discharge, nares with redness, no rhinorrhea. THROAT: Mucous membranes moist, posterior pharynx erythema NECK: Neck supple, tender CARDIOVASCULAR: Tachycardic rate and rhythm without murmurs, gallops, or rubs. RESPIRATORY: Clear to auscultation. Breath sounds equal bilaterally. No wheezes, rales, or rhonchi. GASTROINTESTINAL: Abdomen soft, non-tender, SKIN: warm, intact with no suspicious lesions or rash, good texture and turgor. NEURO: awake, alert, and oriented to person, place and time. There were no obvious focal neurologic abnormalities. Steady gait EXTREMITIES: Normal range of motion. BACK: Nontender without deformity Course Course Emergency Course: Patient comes to [facility] with fever fever and strep throat Strep was positive Flu and Covid were negative Patient started on amoxicillin 875 twice daily and Tessalon Perles as well as ibuprofen 800 mg 3 times daily as needed Vital Signs Vital signs: Vital Signs Temperature 101.5 F H 12/11/20 08:12 Pulse Rate 113 H 12/11/20 08:12 Respiratory Rate 18 12/11/20 08:12 Blood Pressure 124/81 12/11/20 08:12 Pulse Oximetry 97 12/11/20 08
== END 2020-12-11 08:45 | disposition home or self-care (01) ==
PROVIDERS: Emergency Provider Nurse Practitioner; PCP Nurse Practitioner Adult Health
DX: J02.0 Streptococcal pharyngitis (principal); R05.9 Cough, unspecified; Z20.822 Contact with and (suspected) exposure to COVID-19; J45.909 Unspecified asthma, uncomplicated
CPT/HCPCS: 87426; 87804; 87880; 99213; C9803; G0463

== ENCOUNTER 2021-08-01 08:03 | Emergency (ER) | payer OTHER, SELFPAY ==
[2021-08-01 08:12] VITALS: BP 118/79; PULSE 90; RESP 16; TEMP 36.9; O2SAT 99
--- NOTE | 2021-08-01 08:17 | ED.URI ---
HPI - URI/Sore Throat General Chief Complaint: Upper Respiratory Infection Stated Complaint: sore throat Time Seen by Provider: 08/01/21 08:16 Source: patient and RN notes reviewed Mode of arrival: ambulatory Limitations: no limitations History of Present Illness HPI Narrative: 30-year-old male presented for complaint of sore throat, sinus pressure and congestion and body aches, onset yesterday. He states he has a decreased appetite, chills, and fatigue. Denies sick contacts. He took NyQuil last night for symptoms. Endorses frequent history of strep infections. He is not vaccinated for COVID or flu. He denies cough, shortness of breath, wheezing, nausea, vomiting, diarrhea. MD elicited complaint: cough Related Data Home Medications Medication Instructions Recorded Confirmed albuterol 90 mcg/actuation aerosol 90 mcg inhalation PRN PRN 08/01/21 08/01/21 inhaler difficulty breathing Allergies Allergy/AdvReac Type Severity Reaction Status Date / Time codeine AdvReac Palpitation Verified 08/01/21 08:32 s Review of Systems Review of Systems: CONSTITUTIONAL: Endorses malaise, chills, sweats EYES: Denies visual changes, redness, or discharge ENT: Reports rhinorrhea, congestion, sinus pain, sore throat CARDIOVASCULAR: Denies chest pain RESPIRATORY: Denies dyspnea GASTROINTESTINAL: Denies abdominal pain, nausea, vomiting, diarrhea SKIN: Denies rash or itching MUSCULOSKELETAL: Endorses myalgia NEUROLOGIC: Endorses headache PMFSH Past Medical History Medical History Alcoholic fatty liver Asthma Hernia Influenza A Migraine Surgical History Surgical History H/O hernia repair S/P genital surgery penile surgery Family History Family History Grandparent Diabetes mellitus Grandparent Carcinoma of colon Father No problems noted. Mother No problems noted. Social History Social History Smoking status: Never smoker Alcohol intake: current Alcohol use details: Pt states that he drinks heavily once a month. Substance use: never Additional living arrangements comments: Resides with his fiancee and 4 children in his own home 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[employer] Gender identity (if verbalized by the patient): Male Spiritual care concerns: Yes (Restorationism) Agree to blood products: Yes Exam Narrative: GENERAL: Ill-appearing, nontoxic HEAD: Normocephalic EYES: conjunctivae clear ENT: Mucous membranes moist. TM pearly jo with dull light reflex bilaterally; no tragal tenderness. Oropharynx erythematous without lesions or exudate, no drooling, no hoarseness, no trismus, uvula midline. No tripod positioning, muffled voice, soft palate or pharyngeal wall bulging NECK: Supple. No lymphadenopathy CHEST: Clear to auscultation, breath sounds equal. HEART: Regular rate and rhythm. No murmur heard. SKIN: Warm, dry, no rash. NEURO: Alert and oriented x3. PSYCH: Normal mood and affect Course Course Emergency Course: Patient is aware of diagnosis, understands and agrees to treatment plan. Anticipatory guidance given. Patient agrees to follow-up as directed and is aware of reasons to seek care at the emergency department. Portions of this record may have been created with voice recognition software Level of Care: Express Care Visit Vital Signs Vital signs: Vital Signs Temperature 98.5 F 08/01/21 08:12 Pulse Rate 90 08/01/21 08:12 Respiratory Rate 16 08/01/21 08:12 Blood Pressure 118/79 08/01/21 08:12 Pulse Oximetry 99 08/01/21 08:12 Oxygen Delivery Room Air 08/01/21 08:12 Temperature 98.5 F 08/01/21 08:12 Pulse Rate 90 08/01/21 08:12 Respiratory Rate 16 08/01/21 08:12 Blood Pres
[2021-08-01 21:15] LABS: SARS-CoV-2 RNA PCR Negative
== END 2021-08-01 09:00 | disposition home or self-care (01) ==
PROVIDERS: Emergency Provider Nurse Practitioner Family; PCP Nurse Practitioner Adult Health
DX: J06.9 Acute upper respiratory infection, unspecified (principal); Z20.822 Contact with and (suspected) exposure to COVID-19; K70.0 Alcoholic fatty liver; J45.909 Unspecified asthma, uncomplicated
CPT/HCPCS: 87081; 87426; 87804; 87880; 99213; C9803; G0463; U0003; U0005

== ENCOUNTER 2022-02-19 08:55 | Emergency (ER) | payer OTHER, SELFPAY ==
[2022-02-19 08:59] VITALS: BP 132/82; PULSE 118; RESP 18; TEMP 37.8; O2SAT 99
--- NOTE | 2022-02-19 09:04 | ED.URI ---
HPI - URI/Sore Throat General Chief Complaint: Upper Respiratory Infection Stated Complaint: Fever, Chills, Cough Time Seen by Provider: 02/19/22 09:04 Source: patient Mode of arrival: ambulatory Limitations: no limitations History of Present Illness HPI Narrative: 31-year-old male presents with complaint of runny nose, nasal congestion, headaches, cough, sore throat, fever, body aches, nausea 3 days. Denies chest pain and shortness of breath. Taking [id number] medications to treat his symptoms. Reports that he has been able to eat very little due to decreased appetite. Denies diarrhea. Did not get flu vaccine. All systems reviewed and negative except as noted above. Related Data Allergies Allergy/AdvReac Type Severity Reaction Status Date / Time codeine AdvReac Palpitation Verified 02/19/22 09:13 s Review of Systems Review of Systems: CONSTITUTIONAL: Reports fever, chills, or sweats. EYES: Denies visual changes, redness, or discharge. ENT: reports rhinorrhea, congestion, sore throat. Denies otalgia. CARDIOVASCULAR: Denies chest pain, palpitations, or edema. RESPIRATORY: reports cough. Denies dyspnea. GASTROINTESTINAL: Denies abdominal pain, nausea, vomiting, or diarrhea. GENITOURINARY: Denies dysuria or hematuria. SKIN: Denies rash or itching. MUSCULOSKELETAL: Denies back pain, joint pain, or myalgia. NEUROLOGIC: Denies headache, numbness, or weakness. PSYCHIATRIC: Denies anxiety or depression. All other systems reviewed are negative, except as documented in HPI. [facility] Past Medical History Medical History Alcoholic fatty liver Asthma Hernia Influenza A Migraine Surgical History Surgical History H/O hernia repair S/P genital surgery penile surgery Family History Family History Grandparent Diabetes mellitus Grandparent Carcinoma of colon Father No problems noted. Mother No problems noted. Social History Social History Smoking status: Never smoker Alcohol intake: current Alcohol use details: Pt states that he drinks heavily once a month. 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 There is no relevant family history pertinent to the presenting complaint. Exam Narrative: GENERAL: This is a well-nourished, well-developed patient. Patient ill-appearing but in no distress. HEAD: normocephalic, atraumatic. EYES: PERRL. Sclera clear/white. Vision is grossly intact. EARS: External ears normal, auditory canals clear and without drainage, TMs normal without perforation. Hearing grossly intact. NOSE: External nose normal with Clear nasal drainage. THROAT: Mucous membranes moist, posterior pharynx clear. NECK: Neck supple, non-tender without lymphadenopathy, masses or thyromegaly. CARDIOVASCULAR: Regular rate and rhythm without murmurs, gallops, or rubs. RESPIRATORY: Clear to auscultation. Breath sounds equal bilaterally. No wheezes, rales, or rhonchi. SKIN: warm, Dry, intact with no suspicious lesions or rash, good texture and turgor. NEURO: awake, alert, and oriented to person, place and time. There were no obvious focal neurologic abnormalities. EXTREMITIES: No joint tenderness, effusion, or edema noted. Course Course Level of Care: Express Care Visit Vital Signs Vital signs: Vital Signs Temperature 37.8 C H 02/19/22 08:59 Pulse Rate 118 H 02/19/22 0
== END 2022-02-19 09:26 | disposition home or self-care (01) ==
PROVIDERS: Emergency Provider Nurse Practitioner Family; PCP Nurse Practitioner Adult Health
DX: J10.1 Influenza due to other identified influenza virus with other respiratory manifestations (principal)
CPT/HCPCS: 87426; 87804; 99213; C9803; G0463

== ENCOUNTER 2023-11-14 15:00 | Outpatient (RCR) | payer OTHER, SELFPAY ==
--- NOTE | 2023-09-19 18:19 | OPREHPOC ---
Outpatient Therapy Plan of Care This is a Multidisciplinary Plan of Care that may contain components documented by all disciplines (PT, OT, and ST.) PT Goal 1 Target Visit 6 PT Problem 2 PT Problem #2 Pain PT Goal 1 Goal Pt will report greatest pain level at 3/10 or less to improve ADLs and activities Target Visit 10 PT Goal 2 Goal Pt will report resolution of pain to return to PLOF Target Visit 16 PT Problem 3 PT Problem #3 Impaired Strength PT Goal 1 Goal Pt will demo core strength of 3+/5 of the TRAM to improve lumbopelvic stability Target Visit 10 PT Goal 2 Goal Pt will demo strength of 4+/5 in all tested planes Target Visit 16
--- NOTE | 2023-09-19 18:20 | PTOPEVAL1 ---
Assessment and note entered by Raiza Hoyt, PT Evaluation Information Assessment Status Evaluation Diagnosis abn findings on diagnostic imaging, low back pain unspec ICD-10 Condition Codes (PT) M54.6,Pain in low back M54.50,Weakness R53.1 Other ICD-10 Condition Codes ( Abnormal postures R29.3 PT) Onset late August 2023 Subjective Information Last year was getting into diet and exercise. Does not recall anything in particular but did increase weight by 5-10 lbs in all exercises. Stopped working out when noticed pain. Noted pain was very little at first, then a few days before coming in was at a water park and had increased pain, couldn't walk around anymore and noted a swollen area. Was provided a prednisone and muscle relaxer, usually takes ibuprofen when has pain as well. Had a prior issue when was a teenager wiht the back but doesn't recall where exactly and hasn't happened since. Pain is usually worse in the morning, picking up his youngest child ~25 lbs is painful. sleeps on his sides or on stomach without pillow support Had to request a vari-desk for work due to back pain. Reported Pain Level Pain Score 0: Self Report Assessment PT Clinical Summary Pt presents with complaints of thoracolumbar back pain. X-rays show curvature of the spine in multiple places, anterolisthesis of L5-S1. demo's tenderness to the L T10 with possible R rotation, possible leg length discrepancy versus pelvic alignment deficit, multiple areas of decreased strength especially in the TRAM muscle group. Pt will greatly benefit from physical therapy to address deficits, educate patient on modifications of lifestyle beneficial to offloading his spine, reduce pain, and return pt to PLOF of fitness regiment and carrying his son without pain. Plan of Care Interventions Electrical Stimulation,Hot Pack/Cold Pack,Manual Therapy,Mechanical Traction,Neuro Re-education, Patient/Caregiver Educati,Therapeutic Activities, Therapeutic Exercise,Self-Care/Home Management, Ultrasound PT Services Indicated Yes Treatment Frequency and 1-2x weekly x 10 visits
== END 2023-12-18 23:59 | disposition home or self-care (01) ==
LOC: ANHHIPT 15:00
PROVIDERS: PCP Nurse Practitioner Family; Visit Provider Nurse Practitioner Family
DX: M54.50 Low back pain, unspecified (principal); R93.7 Abnormal findings on diagnostic imaging of other parts of musculoskeletal system
CPT/HCPCS: 97014; 97035; 97110; 97112; 97140; 97162; 97530; G0283